=== PATIENT | male | born 1980 ===

== ENCOUNTER 2023-09-27 07:01 | Day surgery (SDC) | payer OTHER ==
[~2023-09-27 07:01] MED LIST: XANAX XR0.5 MG PO
== END 2023-09-27 17:20 | disposition home or self-care (01) ==
LOC: CIR.AMB 07:01
PROVIDERS: ATTEND Urology
DX: Z98.52 Vasectomy status (principal); N50.89 Other specified disorders of the male genital organs; Z20.822 Contact with and (suspected) exposure to COVID-19